=== PATIENT | male | born 1995 | race Caucasian/White ===

== ENCOUNTER 2017-07-24 07:26 | Day surgery (SDC) | payer OTHER ==
[~2017-07-24 07:26] MED LIST: Lactated Ringers 1,000 ML IV SCH; Lidocaine 1% 4 ML ONE; Lidocaine 1%/Sod Bicarbonate in NS 8.4% 1 ML Syringe IDERM PRN; Propofol 200 MG/20 ML SDV ONE; Sodium Chloride 0.9% 10 ML Syringe FLUSH PRN
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
[2017-07-24] MEDS ORDERED: fentaNYL 100 MCG/2 ML SDV ONE (07:46)
--- NOTE | 2017-07-24 08:22 | PCM48HPAN ---
Post Anesthesia Note - EVALUATION WITHIN 48HRS OF ANESTHETIC Vital Signs in Normal Range: Yes Patient Participated in Evaluation: Yes Respiratory Function Stable: Yes Airway Patent: Yes Cardiovascular Function Stable: Yes Hydration Status Stable: Yes Pain Control Satisfactory: Yes Nausea and Vomiting Control Satisfactory: Yes Mental Status Recovered: Yes Pulse Rate: 63 Resp Rate: 16 Temperature: 97.9 F Blood Pressure: 120/79
--- NOTE | 2017-07-24 08:25 | PCM.OPNOTE ---
- General Post-Op/Procedure Note Date of Surgery/Procedure: 07/24/17 Operative Procedure(s): Esophagogastroduodenoscopy with GE junction gastric body and antral biopsies Findings: 1. Small linear GE junction ulcer 2. Duodenal gastric reflux of bile Pre Op Diagnosis: Epigastric pain Post-Op Diagnosis: 1. Small linear GE junction ulcer. 2. Duodenal gastric reflux of bile Anesthesia Technique: MAC, Moderate Sedation Primary Surgeon: Fish Keating Pathology: 1. GE junction biopsy 2. Stomach biopsy 3. Antral biopsy EBL in mLs: 0 Complications: None Condition: Good Free Text/Narrative:: After adequate IV sedation and analgesia was obtained with monitoring the patient was placed on his left side. Through a bite block a lubricated upper endoscope was easily inserted into the esophagus and advanced with direct vision into the stomach. Additional air was given here. There was a large amount of bile in the stomach. The pylorus was slightly patent. The scope was passed through the pylorus into the second part of the duodenum. The second and first parts were endoscopically normal with no inflammatory changes. The antrum had no inflammatory changes but I took random biopsy for histologic review. In the retroflexed position there was no hiatal hernia. The fundic and cardiac regions were normal. The stomach folds were normal as well. I took a biopsy of the gastric mucosa in the body of the stomach. The scope was then withdrawn to the GE junction where there was a 1 cm ulcer that was shallow that appeared to be almost healed. There was no stricturing. I took biopsy in the area of the ulcer. The body of the esophagus was normal. The vocal cords were normal. Photographs were taken for the patient and for the medical record.
[2017-07-24 08:26] VITALS: BP 119/65
== END 2017-07-24 08:40 | disposition home or self-care (01) ==
LOC: JD.SDS 07:26
PROVIDERS: ATTEND Surgery
DX: K29.50 Unspecified chronic gastritis without bleeding (principal); F31.30 Bipolar disorder, current episode depressed, mild or moderate severity, unspecified; K21.9 Gastro-esophageal reflux disease without esophagitis; Z79.899 Other long term (current) drug therapy; F17.200 Nicotine dependence, unspecified, uncomplicated
CPT/HCPCS: 43239; J3010; J7120; J2704

== ENCOUNTER → 2024-09-18 | Day surgery (SDC) | payer BC, OTHER ==
[~2024-09-18] MED LIST changes: +Dexamethasone 4 MG/ML 5 ML MDV ONE; +HYDROmorphone 0.5 MG/0.5 ML Syringe IVPUSH PRN; +HYDROmorphone 0.5 MG/0.5 ML Syringe ONE; +Ketamine 200 MG/20 ML MDV ONE; +Ketorolac 30 MG/ML SDV ONE; +Lactated Ringers 1,000 ML ONE; -Lidocaine 1% 4 ML ONE; +Lidocaine 1% 5 ML VIAL ONE; -Lidocaine 1%/Sod Bicarbonate in NS 8.4% 1 ML Syringe IDERM PRN; +Midazolam 1 MG/ML 2 ML SDV ONE; +Ondansetron 4 MG/2 ML SDV IVPUSH PRN; -Propofol 200 MG/20 ML SDV ONE; +Rocuronium 50 MG/5 ML Vial ONE; +Sodium Chloride 0.9% 10 ML Syringe FLUSH SCH; +Sodium Chloride 0.9% 100 ML ONE; +Sugammadex Sodium 200 MG/2 ML VIAL IV ONE; +ceFAZolin 2 GM Vial ONE; +cefOXitin 2 GM Vial ONE; +cefOXitin 2 GM in Sodium Chloride 0.9% 50 ML IV ONE; +dexmedeTOMIDine HCl 200 MCG/2 ML SDV ONE; +fentaNYL 100 MCG/2 ML SDV IVPUSH PRN; +fentaNYL 250 MCG/5 ML SDV ONE; +propofoL 500 MG/50 ML 50 ML ONE
[2024-09-18 16:35] LABS: BASOPHILS ABSOLUTE AUTO 0.1 K/mm3 (0.0-0.2); BASOPHILS PERCENT AUTO 0.5 % (0.0-1.0); EOSINOPHILS ABSOLUTE AUTO 0.1 K/mm3 (0.0-0.4); EOSINOPHILS PERCENT AUTO 0.7 % (0.0-6.0); HEMATOCRIT 42.9 % (42.0-52.0); HEMOGLOBIN 15.1 gm/dl (14.0-18.0); IMMATURE GRAN ABSOLUTE AUTO 0.02 K/mm3 (0.00-0.05); IMMATURE GRAN PERCENT AUTO 0.2 % (0.0-0.4); LYMPHOCYTES ABSOLUTE AUTO 2.4 K/mm3 (1.0-4.8); LYMPHOCYTES PERCENT AUTO 23.6 % (24.0-44.0); MEAN CORPUSCULAR HEMOGLOBIN 31.5 pg (28.0-32.0); MEAN CORPUSCULAR HGB CONC 35.2 g/dl (32.0-36.0); MEAN CORPUSCULAR VOLUME 89.6 fl (83.0-99.0); MEAN PLATELET VOLUME 8.8 fl (9.4-12.4); MONOCYTES ABSOLUTE AUTO 1.6 K/mm3 (0.0-0.8); MONOCYTES PERCENT AUTO 15.9 % (0.0-8.0); NEUTROPHILS ABSOLUTE AUTO 5.9 K/mm3 (1.8-7.7); NEUTROPHILS PERCENT AUTO 59.1 % (41.0-71.0); PLATELET COUNT,PLT 180 K/mm3 (150-400); RED BLOOD CELL COUNT 4.79 M/mm3 (4.52-5.90); WHITE BLOOD CELL COUNT,WBC 9.97 K/mm3 (3.9-11.3)
[2024-09-18 16:59] LABS: A/G RATIO 1.1 (1-2); ALBUMIN 4.3 g/dl (3.4-5.0); BILIRUBIN TOTAL 0.6 mg/dL (0.2-1.0); BUN/CREATININE RATIO 12.7 (14-18); CALCIUM 9.4 mg/dL (8.5-10.1); CREATININE 1.1 mg/dL (0.7-1.3); EST CRCL DRUG DOSING (CG) 106.8 mL/min; PROTEIN TOTAL,TP 8.2 g/dl (6.4-8.2)
[2024-09-18] MEDS: Sodium Chloride 0.9% 10 ML Syringe FLUSH ONE (17:02)
[2024-09-18] MEDS: Iopamidol 612 MG/ML 100 ML Bottle IVPUSH ONE (17:02)
[2024-09-18] MEDS: HYDROmorphone 0.5 MG/0.5 ML Syringe IVPUSH ONE (17:16)
[2024-09-18] MEDS: Ondansetron 4 MG/2 ML SDV IVPUSH ONE (17:16)
[2024-09-18] MEDS: Sodium Chloride 0.9% 1,000 ML IV STA (17:19)
[2024-09-18 17:50] LABS: APPEARANCE,URINE CLEAR (Clear); BILIRUBIN,URINE NEGATIVE (Negative); COLOR,URINE YELLOW (Yellow); GLUCOSE,URINE NEGATIVE (Negative); KETONES,URINE NEGATIVE (Negative); LEUKOCYTE ESTERASE,URINE NEGATIVE (Negative); NITRITE,URINE NEGATIVE (Negative); OCCULT BLOOD,URINE TRACE-LYSED (Negative); PROTEIN,URINE NEGATIVE (Negative); UROBILINOGEN,URINE 0.2 (0.2-1.0)
[2024-09-18 17:59] LABS: BACTERIA,URINE RARE /hpf (FEW); MUCUS,URINE NOT SEEN /hpf (FEW); RBC,URINE 0-5 /hpf (0-5); SQUAMOUS EPITHELIAL CELLS,UR NOT SEEN /hpf (0-5); WBC,URINE 0-5 /hpf (0-5)
[2024-09-18] MEDS: Bupivacaine 0.5% 30 ML SDV ONE (18:52)
[2024-09-18] MEDS: EPINEPHrine 1 MG/ML SDV ONE (18:52)
[2024-09-18 20:18] VITALS: BP 110/59; PULSE 77
== END ==
LOC: JD.ED 15:47 → JD.SDS 18:10
PROVIDERS: ATTEND Surgery
DX: K35.80 Unspecified acute appendicitis (principal); D3A.8 Other benign neuroendocrine tumors; K21.9 Gastro-esophageal reflux disease without esophagitis; F31.9 Bipolar disorder, unspecified
CPT/HCPCS: 00840; 36415; 74177; 74177-26; 80053; 81001; 85025; 86140; 96361; 96374; 96375; 99140; 99285; 99285-25; J0171; J0665; J0690; J0694; J1100; J1885; J2003; J2250; J2405; J2704; J3010; J3490; J7030; J7120; Q9967

== ENCOUNTER 2025-02-24 09:59 | Day surgery (SDC) | payer BC ==
[~2025-02-24 09:59] MED LIST changes: -Dexamethasone 4 MG/ML 5 ML MDV ONE; -HYDROmorphone 0.5 MG/0.5 ML Syringe IVPUSH PRN; -HYDROmorphone 0.5 MG/0.5 ML Syringe ONE; -Ketamine 200 MG/20 ML MDV ONE; -Ketorolac 30 MG/ML SDV ONE; -Lactated Ringers 1,000 ML IV SCH; -Lactated Ringers 1,000 ML ONE; -Lidocaine 1% 5 ML VIAL ONE; -Midazolam 1 MG/ML 2 ML SDV ONE; -Ondansetron 4 MG/2 ML SDV IVPUSH PRN; -Rocuronium 50 MG/5 ML Vial ONE; -Sodium Chloride 0.9% 100 ML ONE; -Sugammadex Sodium 200 MG/2 ML VIAL IV ONE; -ceFAZolin 2 GM Vial ONE; -cefOXitin 2 GM Vial ONE; -cefOXitin 2 GM in Sodium Chloride 0.9% 50 ML IV ONE; -dexmedeTOMIDine HCl 200 MCG/2 ML SDV ONE; -fentaNYL 100 MCG/2 ML SDV IVPUSH PRN; -fentaNYL 250 MCG/5 ML SDV ONE; -propofoL 500 MG/50 ML 50 ML ONE
[2025-02-24] MEDS: Lactated Ringers 1,000 ML IV SCH (10:25)
[2025-02-24] MEDS ORDERED: EPINEPHrine 1 MG/ML SDV ONE (11:01)
[2025-02-24] MEDS ORDERED: propofoL 500 MG/50 ML 50 ML ONE (11:15)
[2025-02-24] MEDS ORDERED: fentaNYL 250 MCG/5 ML SDV ONE (11:17)
[2025-02-24] MEDS ORDERED: Ketamine HCL/NACL, ISO-OSM 50 MG/5 ML Syringe ONE (11:17)
[2025-02-24] MEDS ORDERED: Dexamethasone 4 MG/ML 5 ML MDV ONE (11:35)
[2025-02-24] MEDS ORDERED: Ondansetron 4 MG/2 ML SDV ONE (12:09)
[2025-02-24] MEDS ORDERED: Ondansetron 4 MG/2 ML SDV IVPUSH PRN (12:30)
[2025-02-24] MEDS: fentaNYL 100 MCG/2 ML SDV IVPUSH PRN (12:42)
[2025-02-24] MEDS: Acetaminophen/HYDROcodone 325-5 MG Tab PO PRN (13:53)
[2025-02-24 14:29] VITALS: BP 136/72; PULSE 66
== END 2025-02-24 14:17 | disposition home or self-care (01) ==
LOC: JD.SDS 09:59
PROVIDERS: ATTEND Orthopaedic Surgery
DX: S83.242A Other tear of medial meniscus, current injury, left knee, initial encounter (principal); M94.262 Chondromalacia, left knee; Z87.891 Personal history of nicotine dependence; Z79.899 Other long term (current) drug therapy
CPT/HCPCS: 29877; A9270; J0169; J0665; J0690; J1100; J2405; J2704; J3010; J7120; 01400; J3490